=== PATIENT | male | born 2005 | race Caucasian/White ===

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

== ENCOUNTER 2025-06-26 17:22 | Emergency (ER) | payer OTHER, SELFPAY ==
--- NOTE | ~2025-06-26 | US_ITS ---
EXAMINATION: US scrotum doppler DATE: 06/26/2025 18:23 INDICATION: Left testicular pain and swelling TECHNIQUE: Testicular sonogram utilizing grayscale and Doppler COMPARISON: None. FINDINGS: The right testis measures 5.1 x 2.7 x 1.9 cm. The left testis measures 4.6 x 3.1 x 2.1 cm. Symmetric normal grayscale appearance to both testes. There is normal vascular flow to both testes. The right epididymis is normal with normal vascular flow. The left epididymis is normal with normal vascular flow. There is no varicocele or hydrocele. IMPRESSION: 1. Normal scrotal ultrasound Reviewed, dictated and finalized at location A.
[2025-06-26 17:30] VITALS: BP 139/83; PULSE 63; RESP 18; TEMP 36.6; O2SAT 100
--- NOTE | 2025-06-26 18:42 | ED_ITS ---
HPI - Male Genitourinary General Chief complaint: Urogenital-Male <Sulaiman Elam, CHIEF DESIGN DRAFTER - Last Filed: 06/26/25 18:44> Stated complaint: from UC, L testicle pain and swelling <Sulaiman Elam CHIEF DESIGN DRAFTER - Last Filed: 06/26/25 18:44> Time Seen by Provider: 06/26/25 21:21 <Sulaiman Elam CHIEF DESIGN DRAFTER - Last Filed: 06/26/25 18:44> Focused HPI: 20 male presents complaining of sudden onset of left testicular pain that began 2 days ago. Denies injury or trauma. Denies dysuria. Denies localized lymph node swelling. Denies purulent penile discharge. States has had unprotected sex with a new partner but not recently. Describes the pain as a sharp sensation that is intermittent. GENERAL: Well-appearing, well-nourished, and in no acute distress. HEAD: Normocephalic, atraumatic. CHEST: Clear to auscultation. No respiratory distress. HEART: Regular rate and rhythm. NEURO: Alert and oriented x3. Patient screened in triage and initial orders placed. Additional care and disposition to be based upon diagnostic testing and treatment. <Sulaiman Elam CHIEF DESIGN DRAFTER - Last Filed: 06/26/25 18:44> Focused HPI: 20 year old male presents complaining of sudden onset of left testicular pain that began 2 days ago. Denies injury or trauma. Denies dysuria. Denies localized lymph node swelling. Denies purulent penile discharge. States has had unprotected sex with a new partner but not recently. Describes the pain as a sharp sensation that is intermittent. GENERAL: Well-appearing, well-nourished, and in no acute distress. HEAD: Normocephalic, atraumatic. CHEST: Clear to auscultation. No respiratory distress. HEART: Regular rate and rhythm. NEURO: Alert and oriented x3. Patient screened in triage and initial orders placed. Additional care and disposition to be based upon diagnostic testing and treatment. <Celestina Torres PA-C - Last Filed: 06/26/25 23:05> Review of Systems Review of Systems: All systems reviewed & are unremarkable except as noted in HPI and below <Celestina Torres PA-C - Last Filed: 06/26/25 23:05> [facility] Past Medical History Medical History: Medical History (Updated 06/26/25 @ 23:02 by Celestina Torres PA-C) No active medical problems <Sulaiman Elam APRN - Last Filed: 06/26/25 18:44> Exam Narrative: GENERAL: Well-appearing, well-nourished, and in no acute distress. HEAD: Normocephalic, atraumatic. EYES: EOMI. CHEST: Clear to auscultation. No respiratory distress. No wheezes rales or rhonchi HEART: Regular rate and rhythm. No murmur heard. Normal peripheral pulses. ABDOMEN: Soft, nontender, nondistended, normal active bowel sounds. EXTREMITIES: Normal range of motion. No edema. SKIN: Warm, dry, no rash. NEURO: No focal deficits. Alert and oriented x3. PSYCH: Normal mood and affect MALE GENITAL: Normal appearing scrotum; no notable redness, swelling. No abnormal urethral drainage. Tender to palpation of the left testicle <Celestina Torres PA-C - Last Filed: 06/26/25 23:05> Course Vital Signs Vital signs: Vital Signs Temperature 97.8 F 06/26/25 17:30 Pulse Rate 63 06/26/25 17:30 Respiratory Rate 18 06/26/25 17:30 Blood Pressure 139/83 06/26/25 17:30 Pulse Oximetry 100 06/26/25 17:30 Oxygen Delivery Room Air 06/26/25 17:30 Temperature 98.0 F 06/26/25 21:19 Pulse Rate 56 L 06/26/25 21:19 Respiratory Rate 16 06/26/25 21:19 Blood Pressure 138/82 06/26/25 21:19 Pulse Oximetry 100 06/26/25 21:19 Oxygen Delivery Room Air 06/26/25 17:30 <Sulaiman Elam APRN - Last Filed: 06/26/25 18:44> Vital Signs Temperature 97.8 F 06/26/25 17:30 Pulse Rate 63 06/26/25 17:30 Respiratory Rate 18 06/26/25 17:30 Blood Pressure 139/83 06/26/25 17:30 Pulse Oximetry 100 06/26/25 17:30 Oxygen Delivery Room Air 06/26/25 17:30 Temperature 98.0 F 06/26/25 21:19 Pulse Rate 56 L 06/26/25 21:19 Respiratory Rate 16 06/26/25 21:19 Blood Pressure 138/82 06/26/25 21:19 Pulse Oximetry 100 06/26/25 21:19 Oxygen Delivery Room Air 06/26/25 17:30 <Celestina Torres PA-C - Last Filed: 06/26/25 23:05> MDM - Male Genitourinary MDM Narrative Medical decision making narrative: Patient presents to the emergency department for left testicular pain, swelling. Ongoing over the last couple of days. Patient is afebrile and nontoxic appearing. His vitals are stable. Urine without evidence of infection. Scrotal ultrasound without acute findings. Patient did not wish to stay for results of STD testing. Will be given follow-up with urology. He was given warnings to return to the ER <Celestina Torres PA-C - Last Filed: 06/26/25 23:05> Differential Diagnosis Differential diagnosis: Likely urinary tract infection, urethritis and epididymitis <Celestina Torres PA-C - Last Filed: 06/26/25 23:05> Lab Data Attestation: I reviewed the patient's lab results. <Celestina Torres PA-C - Last Filed: 06/26/25 23:05> Labs: Lab Results 06/26/25 Range/Units 21:57 Urine Color Yellow (Yellow) Urine Appearance Clear (Clear) Urine pH 6.0 (5.0-9.0) Ur Specific [place] 1.025 (1.001-1.035) Urine Protein Negative (Negative) mg/dL Urine Glucose (UA) Negative (Negative) mg/dL Urine Ketones Trace H (Negative) mg/dL Ur Blood (Man) Negative (Negative) Urine Nitrate Negative (Negative) Urine Bilirubin Negative (Negative) Urine Urobilinogen 0.2 (<2.0) mg/dL Leukocyte Esterase Rfl Negative (Negative) MIAH/UL C. trachomatis (PCR) Pending N. gonorrhoeae (PCR) Pending T. vaginalis (PCR) Pending <Sulaiman Elam APRN - Last Filed: 06/26/25 18:44> Lab Results 06/26/25 Range/Units 21:57 Urine Color Yellow (Yellow) Urine Appearance Clear (Clear) Urine pH 6.0 (5.0-9.0) Ur Specific [place] 1.025 (1.001-1.035) Urine Protein Negative (Negative) mg/dL Urine Glucose (UA) Negative (Negative) mg/dL Urine Ketones Trace H (Negative) mg/dL Ur Blood (Man) Negative (Negative) Urine Nitrate Negative (Negative) Urine Bilirubin Negative (Negative) Urine Urobilinogen 0.2 (<2.0) mg/dL Leukocyte Esterase Rfl Negative (Negative) MIAH/UL C. trachomatis (PCR) Pending N. gonorrhoeae (PCR) Pending T. vaginalis (PCR) Pending <Celestina Torres PA-C - Last Filed: 06/26/25 23:05> Imaging Data Radiologist's impression: ITS Impressions Scrotum Ultrasound 06/26/25 20:17 IMPRESSION: 1. Normal scrotal ultrasound <Celestina Torres PA-C - Last Filed: 06/26/25 23:05> Critical Care Time Critical Care Time Critical Care Time: No <Celestina Torres PA-C - Last Filed: 06/26/25 23:05> Discharge Plan Discharge Clinical Impression: Left testicular pain <Sulaiman Elam APRN - Last Filed: 06/26/25 18:44> Patient Disposition: Home <Sulaiman Elam APRN - Last Filed: 06/26/25 18:44> Condition: Stable <Sulaiman Elam APRN - Last Filed: 06/26/25 18:44> Instructions: Testicle Pain (ED) <Sulaiman Elam APRN - Last Filed: 06/26/25 18:44> Additional Instructions: Return to the emergency department if you experience fever, abdominal pain with nausea and vomiting, redness and swelling of your scrotum, or any other symptoms that are concerning to you. Wear good scrotal supporting underwear. Tylenol or Ibuprofen as needed for pain Follow up with Urology <TERENCE Smith Last Filed: 06/26/25 18:44> Patient Language: Maltese <Sulaiman Elam APRN - Last Filed: 06/26/25 18:44> Follow-up/Referrals: Rodrigue Lynn MD [Physician, Urology] PHYSICIAN,CLEANER AND TRIMMER [Primary Care Provider, Internal Medicine] <Sulaiman Elam, CHIEF DESIGN DRAFTER - Last Filed: 06/26/25 18:44>
[2025-06-26 21:19] VITALS: BP 138/82; PULSE 56; RESP 16; TEMP 36.7; O2SAT 100
--- OUTSIDE RECORDS SUMMARY | 2025-06-26 21:30 | XMS_ITS | Clinical Summary ---
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 Immunizations Immunization Administration Dates Next Due Dtap (Generic) 07/03/2010, 7,2005,2005,06/26 Hepatitis A (Generic) 06/05/2016 Hepatitis B (Generic Peds) 2005,2005 ,2005 Hib (Generic) 03/19/2007,2005,2005 ,2005 MMR (Generic) 07/03/2010,05/06/2006 Meningococcal (Menactra) 06/04/2022,06/05/2016 Pneumococcal (Prevnar 13) 03/19/2007,2005, 2005,2005 Polio Ipv (Generic) 07/03/2010,2005,2004,2005 Tdap (Generic) 06/05/2016 Varicella (Generic) 07/03/2010,05/06/2006 Social History Tobacco Use Types Packs/Day Years Used Date Smoking Tobacco: Every Day Smokeless Tobacco: Never Tobacco Cessation:Ready to Q uit: No; Counseling Given: Yes Comments:Patient vapes Alcohol Use Standard Drinks/Week Comments Yes 0 (1 standard drink = 0.6 oz pur e alcohol) Socially PHQ-2 Answer Date Recorded PHQ-2 Score - If the patient scores above 3, please move on to questions 3-9 0 06/04/2022 Sex and Gender Information Value Date Recorded Sex Assigned at Not on file Legal Sex Male 11:36 AM CDT Gender Identity Not on file Sexual Orientation Not on file Last Filed Vital Signs Vital Sign Reading Time Taken Comments Blood Pressure 123/69 06/04/2022 8:20 AM CDT Pulse 47 06/04/2022 8:45 AM CDT Temperature 36.6 C (97.9 F) 06/04/2022 8:20 AM CDT Respiratory Rate 18 06/04/2022 8:20 AM CDT Oxygen Saturation 99% 06/04/2022 8:20 AM CDT Inhaled Oxygen Concentration - - Weight 81.8 kg (180 lb 6.4 oz) 06/04/2022 8:20 A M CDT Height 174 cm (5' 8.5) 06/04/2022 8:20 AM CDT Body Mass Index 27.03 06/04/2022 8:20 AM CDT Plan of Treatment Health Maintenance Due Date Last Done Comments Pneumococcal Vaccine: Pediatrics (0 to 5 Years) and At-Risk Patients (6 to 49 Years) (1 of 1 - PPSV23) 2011 03/19/2007, 2005, 2005, Additional history exists HPV Vaccines (1 - Male 3-dose series) 2020 Meningococcal B Vaccine (1 of 2 - Standard) 2021 Hepatitis C 2023 Annual Physical 06/04/2023 06/04/2022 COVID-19 Vaccine (1 - season) 2025 Influenza Adult (#1) 2025 DTaP, Tdap and Td Vaccines (7 - Td or Tdap) 06/05/2026 06/05/2016, 07/03/2010, 03/19/2007, Additional history exists Hepatitis B Vaccines Completed 2005, 2005, 2005 Meningococcal Vaccine Completed 06/04/2022, 016 RSV Immunizations Under 20 Months Aged Out No longer eligible based on patient's age to complete this topic Insurance [facility] Care Teams Washer Operator Relationship Specialty Start Date End Date Sarah Leslie NP [address] [place] [id number] PCP - General NURSE PRACTITIONER 05/29/22
--- OUTSIDE RECORDS SUMMARY | 2025-06-26 21:30 | XMS_ITS | Clinical Summary ---
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 Monthly or less 11/16/2023 Q2: How many drinks containi ng alcohol do you have on a typical day when you are drinking? 5 or 6 11/16/2023 Q3: How often do you have si x or more drinks on one occasion? Less than monthly 11/16/2023 Personal Safety Answer Date Recorded Getting School Help Needed Not on file 08/31 Sex and Gender Information Value Date Recorded Sex Assigned at Not on file Legal Sex Male 10:47 AM CDT Gender Identity Not on file Sexual Orientation Not on file Obstetrics History Last Filed Vital Signs Vital Sign Reading Time Taken Comments Blood Pressure 127/77 11/16/2023 8:40 AM PULLMAN CAR CLERK Pulse 67 11/16/2023 8:40 AM PULLMAN CAR CLERK Temperature 36.7 C (98.1 F) 11/16/2023 8:40 AM PULLMAN CAR CLERK Respiratory Rate 20 11/16/2023 8:40 AM PULLMAN CAR CLERK Oxygen Saturation 98% 11/16/2023 8:40 AM PULLMAN CAR CLERK Inhaled Oxygen Concentration - - Weight 98.4 kg (216 lb 14.4 oz) 11/16/2023 8:40 AM PULLMAN CAR CLERK Height 175.3 cm (5' 9) 11/16/2023 8:40 AM PULLMAN CAR CLERK Body Mass Index 32.03 11/16/2023 8:40 AM PULLMAN CAR CLERK Plan of Treatment Health Maintenance Due Date Last Done Comments Depression Screening 2005 Hepatitis C Screening 2005 HPV Vaccines (1 - Male 3-dos e series) 2020 Meningococcal B Vaccine (1 o f 2 - Standard) 2021 Hepatitis B Screening 2023 Regular Well Visit/Exam 18-64 2023 Influenza Vaccine (#1) 2025 DTaP/Tdap/Td Vaccine (7 - Td or Tdap) 06/05/2026 06/05/2016, 07/03/2010, 07/03/2010, Additional history exists Pneumococcal vaccine <65 Completed 007, 2005, 2005, Additional history exists Varicella Vaccines Completed 07/03/2010, 1 , 05/06/2006, Additional history exists Meningococcal Vaccine Completed 06/04/2022, [address] [facility] [employer] [place] Care Teams Industrial Electrical Engineer Relationship Specialty Start Date End Date Skyler Crespo MD [id number] [place] [address] PCP - General 03/20/21
[2025-06-26 22:06] LABS: Add Urine Microscopic? NO; Appearance Urine Clear (Clear); Glucose Urine UA Negative (Negative); Leukocyte Esterase Ur Negative LEU/UL (Negative); Nitrate Urine Negative (Negative); Specific Grav Ur 1.025 (1.001-1.035)
[2025-06-26 23:10] LABS: Trichomonas Vag PCR NOT DETECTED (NOT DETECTE)
[2025-06-26 23:14] VITALS: BP 137/82; PULSE 58; RESP 16; O2SAT 100
== END 2025-06-26 23:16 | disposition home or self-care (01) ==
PROVIDERS: Nurse Practitioner Family; Emergency Provider Physician Assistant
DX: N50.812 Left testicular pain (principal)
CPT/HCPCS: 76870; 81003; 87491; 87591; 87661; 93976; 99284